=== PATIENT | male | born 1965 | race Caucasian/White ===

== ENCOUNTER 2017-11-23 15:31 | Emergency (ER) | payer OTHER ==
[2017-11-23] MEDS ORDERED: ACETAMINOPHEN 325 MG TABLET PO STA (17:23)
--- NOTE | 2017-11-23 17:25 | ED Physician Documentation ---
History of Present Illness - Stated complaint Stated Complaint: GROIN PX - Chief complaint Chief Complaint: General - History obtained from History obtained from: Patient - History of Present Illness Timing: Today (52-year-old gentleman, generally healthy about 3 years out from a left inguinal hernia repair with mesh, it does sometimes bother him but not too much. Progressively starting at noon today he had groin pain with chills and sweats that became severe but only wants Tylenol for it. No urinary complaints of back pain.) Review of Systems Constitutional: reports: Chills, Sweats Cardiac: denies: Chest pain / pressure, Palpitations Respiratory: denies: Dyspnea, Cough PD PAST MEDICAL HISTORY - Past Medical History Past Medical History: Yes GI: Other Other Past Medical History: Barretts esophagus. Colitis - Past Surgical History Past Surgical History: Yes General: Hiatal hernia repair, Colonoscopy, EGD - Present Medications Home Medications: Ambulatory Orders Medication Instructions Recorded Confirmed Cephalexin [Keflex] 500 mg PO QID #40 capsule 11/23/17 Levothyroxine [Synthroid] 11/23/17 Pantoprazole [Protonix] 11/23/17 - Allergies Allergies/Adverse Reactions: Allergies Allergy/AdvReac Type Severity Reaction Status Date / Time No Known Drug Allergies Allergy Verified 11/23/17 15:41 - Social History Does the pt smoke?: No Smoking Status: Never smoker Does the pt drink ETOH?: No Does the pt have substance abuse?: No - Immunizations Immunizations are current?: No - POLST Patient has POLST: No PD ED PE NORMAL - Vitals Vital signs reviewed: Yes - General General: Alert and oriented X 3, No acute distress - Cardiac Cardiac: RRR, No murmur - Respiratory Respiratory: No respiratory distress, Clear bilaterally - Abdomen Abdomen: Normal bowel sounds, Soft, Non tender - Male Male : Other (He is tender over the left side of the mons pubis but without overlying skin changes obvious swelling. The testes appear normal without tenderness.) - Rectal Rectal: Other (Prostate NTTP, no swelling) - Neuro Neuro: Alert and oriented X 3, Normal speech - Psych Psych: Normal mood, Normal affect Results - Vitals Vitals: Vital Signs - 24 hr 11/23/17 11/23/17 15:42 18:29 Temperature 37.9 C H Heart Rate 82 90 Respiratory 18 18 Rate Blood Pressure 168/98 H 152/92 H O2 Saturation 97 98 Oxygen O2 Source Room air - Labs Labs: Laboratory Tests 11/23/1718 18 17:31 17:31 17:31 WBC 10.2 RBC 4.45 L Hgb 14.5 Hct 42.8 MCV 96.1 H MCH 32.7 H MCHC 34.0 RDW 13.7 Plt Count 186 MPV 7.2 L Neut # 8.6 H Lymph # 0.7 L [place] # 0.7 Eos # 0.1 Baso # 0.0 Absolute Nucleated RBC 0.00 Nucleated RBC % 0.0 Sodium 136 Potassium 3.8 Chloride 98 L Carbon Dioxide 27 Anion Gap 11.0 BUN 21 H Creatinine 1.1 Estimated GFR (MDRD) 71 L Glucose 101 H Lactic Acid 0.9 Calcium 9.1 Total Bilirubin 1.1 H AST 28 ALT 25 Alkaline Phosphatase 46 C-Reactive Protein < 1.0 Total Protein 7.4 Albumin 4.4 Globulin 3.0 Albumin/Globulin Ratio 1.5 Lipase 28 TSH Thyroxine (T4) Free T3 pg/mL 18 18 17:31 17:31 WBC RBC Hgb Hct MCV MCH MCHC RDW Plt Count MPV Neut # Lymph # [place] # Eos # Baso # Absolute Nucleated RBC Nucleated RBC % Sodium Potassium Chloride Carbon Dioxide Anion Gap BUN Creatinine Estimated GFR (MDRD) Glucose Lactic Acid Calcium Total Bilirubin AST ALT Alkaline Phosphatase C-Reactive Protein Total Protein Albumin Globulin Albumin/Globulin Ratio Lipase TSH 34.96 H Thyroxine (T4) 3.64 L Free T3 pg/mL 3.14 - Rads (name of study) Ct Pelvis with Radiology: EMP read contemporaneously (Mild stranding of left femoral subcutaneous tissue could be consistent with cellulitis) PD MEDICAL DECISION MAKING - ED course ED course: 52-year-old gentleman presents with fevers and chills and pain and tenderness in the left femoral pubic region, exam was relatively unremarkable though and pain was not out of proportion to examination. Labs were reassuring, noting that he asked me to add on thyroid studies because he recently started on thyroid medication and is scheduled for a redraw. Copies of that were given to him. CT imaging is suggestive of cellulitis in the area in question he is treated with ancef/Keflex. Departure - Departure Disposition: 01 Home, Self Care Clinical Impression: Cellulitis of groin, left Hypothyroid Qualifiers: Hypothyroidism type: unspecified Qualified Code(s): E03.9 - Hypothyroidism, unspecified Condition: Good Record reviewed to determine appropriate education?: Yes Instructions: Cellulitis Dc Prescriptions: Cephalexin [Keflex] 500 mg PO QID #40 capsule Comments: Return if worsening or if not improving in the next 24-48 hours. Follow-up with your doctor to discuss your thyroid labs.
[2017-11-23 17:38] LABS: BASOPHILS % (AUTO) 0.4 %; EOSINOPHILS # (AUTO) 0.1 10^3/uL (0.0-0.7); HGB - HEMOGLOBIN 14.5 g/dL (14.0-18.0); LYMPHOCYTES # (AUTO) 0.7 10^3/uL (1.5-3.5); MEAN CORPUSCULAR HEMOGLOBIN 32.7 pg (27.0-31.0); MEAN CORPUSCULAR VOLUME 96.1 fL (80.0-94.0); MEAN PLATELET VOLUME 7.2 fL (7.4-11.4); MONOCYTES # (AUTO) 0.7 10^3/uL (0.0-1.0); MONOCYTES % (AUTO) 6.8 %; NEUTROPHILS # (AUTO) 8.6 10^3/uL (1.5-6.6); NEUTROPHILS % (AUTO) 84.8 %; PLT - PLATELET COUNT 186 10^3/uL (130-450); RED BLOOD COUNT 4.45 10^6/uL (4.70-6.10); RED CELL DISTRIBUTION WIDTH 13.7 % (12.0-15.0); WHITE BLOOD COUNT 10.2 x10^3/uL (4.8-10.8)
[2017-11-23] MEDS ORDERED: IOPAMIDOL-300 100 ML VIAL ONE (17:49)
[2017-11-23] MEDS ORDERED: IOPAMIDOL-300 100 ML VIAL IVP ONE (17:55)
[2017-11-23 17:57] LABS: ALBUMIN 4.4 g/dL (3.2-5.5); ALBUMIN/GLOBULIN RATIO 1.5 (1.0-2.2); ALKALINE PHOSPHATASE 46 IU/L (42-121); ALT ALANINE AMINOTRANSFERASE 25 IU/L (10-60); AST ASPARTATE AMINOTRANSFERASE 28 IU/L (10-42); BILIRUBIN,TOTAL 1.1 mg/dL (0.2-1.0); BUN - BLOOD UREA NITROGEN 21 mg/dL (6-20); CALCIUM 9.1 mg/dL (8.5-10.3); CARBON DIOXIDE - CO2 27 mmol/L (21-32); CHLORIDE 98 mmol/L (101-111); CREATININE 1.1 mg/dL (0.6-1.2); CRP - C-REACTIVE PROTEIN < 1.0 mg/dL (0-1.0); GFR - MDRD 71 (>89); GLUCOSE 101 mg/dL (70-100); LIPASE 28 U/L (22-51); SODIUM 136 mmol/L (135-145); TOTAL PROTEIN 7.4 g/dL (6.7-8.2)
[2017-11-23 18:03] LABS: T4 (THYROXINE) 3.64 ug/dL (6.09-12.23)
[2017-11-23 18:07] LABS: THYROID STIMULATING HORMONE 34.96 uIU/mL (0.34-5.60)
--- NOTE | 2017-11-23 18:29 | CT Report ---
EXAM: CT PELVIS EXAM DATE: 11/23/2017 05:56 PM. CLINICAL HISTORY: Groin pain COMPARISONS: None. TECHNIQUE: Routine helical CT imaging was performed through the pelvis. IV contrast: ISOVUE 300 100m L. Enteric contrast: No. Reconstructions: Coronal and sagittal. In accordance with CT protocol optimization, one or more of the following dose reduction techniques w ere utilized for this exam: automated exposure control, adjustment of mA and/or KV based on patient s ize, or use of iterative reconstructive technique. FINDINGS: Visualized Abdominal Organs: Normal. Peritoneal Cavity/Bowel: No dilated or thick-walled bowel is seen. No intraperitoneal free air or jeff e fluid. The appendix is well visualized and normal. Pelvic Organs: Moderate distention of the urinary bladder. The prostate is unremarkable. Vasculature: No aneurysms or other significant abnormality. Bones: No significant abnormality. Other: There are small fat-containing inguinal hernias without CT evidence of significant associated inflammation. There is some mild subcutaneous fat stranding within the left femoral region (image 38 series 3). IMPRESSION: 1. There are small bilateral fat-containing inguinal hernias without CT evidence of significant assoc iated inflammation. 2. There is mild subcutaneous fat stranding with mild left femoral region (for example image 38 serie s 3). This could represent mild cellulitis. 3. No intra-abdominal abnormalities are seen. [facility] Referring Provider Line: [phone] SITE ID: [id number]
[2017-11-23 18:31] VITALS: BP 152/92
[2017-11-23] MEDS ORDERED: ceFAZolin 1 GM VIAL IVP STA (18:37)
== END 2017-11-23 19:02 | disposition home or self-care (01) ==
LOC: ED 15:31
DX: L03.314 Cellulitis of groin (principal); E03.9 Hypothyroidism, unspecified
CPT/HCPCS: 36415; 72193; 80053; 83605; 83690; 84436; 84443; 84481; 85025; 86140; 96374; 99283; 99284; A9270; Q9967

== ENCOUNTER 2017-12-13 00:21 | Emergency (ER) | payer OTHER ==
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
[2017-12-13] MEDS ORDERED: PROPARACAINE 0.5% OPHTH DROPS 15 ML EACHEYE STA (04:09)
[2017-12-13] MEDS ORDERED: ERYTHROMYCIN OPHTH OINT 1 GM TUBE EACHEYE STA (04:39)
[2017-12-13] MEDS ORDERED: HYDROcod/ACET 5/325 Prepack 6 PO STA (04:39)
[2017-12-13 05:01] VITALS: BP 140/84
== END 2017-12-13 04:55 | disposition home or self-care (01) ==
LOC: ED 00:21
DX: H16.133 Photokeratitis, bilateral (principal); X32.XXXA Exposure to sunlight, initial encounter; Y99.0 Civilian activity done for income or pay; E03.9 Hypothyroidism, unspecified
CPT/HCPCS: 99283; J3490

== ENCOUNTER 2021-06-08 13:04 | Outpatient (CLI) | payer OTHER ==
[2021-06-08 13:17] LABS: BASOPHILS % (AUTO) 0.8 %; EOSINOPHILS # (AUTO) 0.3 10^3/uL (0.0-0.7); EOSINOPHILS % (AUTO) 6.8 %; HCT - HEMATOCRIT 44.6 % (42.0-52.0); HGB - HEMOGLOBIN 15.4 g/dL (14.0-18.0); LYMPHOCYTES # (AUTO) 1.5 10^3/uL (1.5-3.5); LYMPHOCYTES % (AUTO) 30.8 %; MEAN CORPUSCULAR HEMOGLOBIN 34.1 pg (27.0-31.0); MEAN CORPUSCULAR HGB CONC 34.5 g/dL (32.0-36.0); MEAN CORPUSCULAR VOLUME 98.9 fL (80.0-94.0); MEAN PLATELET VOLUME 9.4 fL (7.4-11.4); MONOCYTES # (AUTO) 0.4 10^3/uL (0.0-1.0); MONOCYTES % (AUTO) 7.4 %; NEUTROPHILS # (AUTO) 2.7 10^3/uL (1.5-6.6); PLT - PLATELET COUNT 188 10^3/uL (130-450); RED BLOOD COUNT 4.51 10^6/uL (4.70-6.10); RED CELL DISTRIBUTION WIDTH 12.4 % (12.0-15.0)
[2021-06-08 13:24] LABS: POTASSIUM 3.9 mmol/L (3.5-5.0)
== END 2021-06-08 13:05 | disposition home or self-care (01) ==
LOC: LAB 13:04
PROVIDERS: ATTEND Orthopaedic Surgery
DX: Z01.812 Encounter for preprocedural laboratory examination (principal)
CPT/HCPCS: 36415; 80051; 85025

== ENCOUNTER 2023-05-11 12:19 | Emergency (ER) | payer OTHER ==
[2023-05-11 12:35] VITALS: BP 145/95; O2SAT 98
--- OUTSIDE RECORDS SUMMARY | 2023-05-11 12:57 | EXTERNAL MEDICAL SUMMARY RPT | Continuity of Care Document ---
Author Name Unknown Address [address] [place] [address] Phone Organization [facility] Address [address] [place] [address] Phone Care Team Providers Care Therapeutic Sales Specialist Name Role Phone [email or web address] Unavailable Unavailable Medications date description facility 2023-04-24 00:00 [facility] Problems date description facility 2023-03-30 12:33 Other intervertebral disc displacement, lumbar region [facility] 2023-04-24 00:00 Spinal stenosis of l umbar region without neurogenic claudication [facility] 2023-04-24 15:27 Spondylosis without myelopathy or radiculopathy, site unspec [facility] 2023-04-24 15:27 Spinal stenosis, lum bar region without neurogenic claudicati [facility] 2023-04-24 15:27 Other intervertebral disc displacement, lumbar region [facility] Results/Labs test date facility value unit notes Vital Signs date measurement value units 2023-03-30 00:00 BP_diastolic 92 mmHg 2023-03-30 00:00 BP_systolic 144 mmHg 2023-03-30 00:00 heart_rate 88 /min 2023-03-30 00:00 o2_saturation 97 % 2023-03-30 00:00 respiration_rate 15 /min 2023-03-30 00:00 temperature_metric 36.78 C 2023-03-30 00:00 temperature_standard 98.2 F 2023-04-24 00:00 BMI 30.9 kg/m2 2023-04-24 00:00 heart_rate 78 /min 2023-04-24 00:00 height_metric 172.72 cm 2023-04-24 00:00 height_standard 68 in 2023-04-24 00:00 o2_saturation 98 % 2023-04-24 00:00 temperature_metric 36.89 C 2023-04-24 00:00 temperature_standard 98.4 F 2023-04-24 00:00 weight_metric 92.07 kg 2023-04-24 00:00 weight_standard 202.98 lb
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
== END 2023-05-11 13:35 | disposition home or self-care (01) ==
LOC: ED 12:19
DX: M54.12 Radiculopathy, cervical region (principal)
CPT/HCPCS: 99281; 99283